=== PATIENT | male | born 1950 | race Two or more races ===

== ENCOUNTER → 2016-08-18 | Outpatient (CLI) | payer OTHER ==
[2016-08-18 12:00] LABS: Basophils # (auto) 0 uL; Basophils % (auto) 0.5 % (0.0-2.0); Eosinophils # (auto) 0.2 uL; Eosinophils % (auto) 2.9 % (0.0-7.0); Hematocrit 47.8 % (41.0-53.0); Hemoglobin 15.4 g/dL (13.5-17.5); Lymphocytes % (auto) 24.4 % (10.0-50.0); Mean Corpuscular Hemoglobin 27.9 pg (28.0-32.0); Mean Corpuscular Hgb Conc. 32.2 g/dL (32.0-36.0); Mean Corpuscular Volume 86.6 fL (80.0-100.0); Mean Platelet Volume 7.5 fL (7.4-10.4); Monocytes # (auto) 0.6 uL; Monocytes % (auto) 6.9 % (0.0-12.0); Neutrophils # (auto) 5.5 uL; Neutrophils % (auto) 65.3 % (37.0-80.0); Platelet Count (auto) 312 10^3/uL (140-450); Red Cell Distribution Width 13.6 % (11.6-16.0); White Blood Cell 8.4 10^3/uL (4.4-10.8)
[2016-08-18 12:25] LABS: Urine Bilirubin Negative (Negative); Urine Blood Negative /uL (Negative); Urine Color Yellow (Yellow); Urine Glucose Normal (Normal); Urine Ketone Negative (Negative); Urine Mucus FEW (None Seen); Urine Nitrite Negative (Negative); Urine RBC 1 /hpf (0 - 3); Urine Squamous Epithelial Cell FEW /hpf (<5); Urine Urobilinogen Normal (Negative); Urine pH 5.5 (5.0-8.0)
[2016-08-18 14:16] LABS: Albumin 3.8 g/dL (3.4-5.0); Potassium 4.4 mmol/L (3.5-5.1)
[2016-08-18 14:19] LABS: BUN/Creatinine Ratio 12.9; Calcium 8.9 mg/dL (8.5-10.1)
[2016-08-18 14:53] LABS: Bilirubin, Total 1.1 mg/dL (0.2-1.0); Total Protein 8.3 g/dL (6.4-8.2)
== END | disposition home or self-care (01) ==
LOC: LAB 11:08
PROVIDERS: ATTEND Internal Medicine
DX: L72.3 Sebaceous cyst (principal)
CPT/HCPCS: 36415; 80053; 80061; 81001; 84146; 84153; 84403; 84443; 85025; 85652; 86141

== ENCOUNTER → 2017-03-25 | Outpatient (CLI) | payer OTHER ==
[2017-03-25 15:43] LABS: Basophils # (auto) 0 uL; Basophils % (auto) 0.6 % (0.0-2.0); Eosinophils # (auto) 0.2 uL; Eosinophils % (auto) 2.1 % (0.0-7.0); Hemoglobin 14.2 g/dL (13.5-17.5); Lymphocytes # (auto) 1.9 uL; Lymphocytes % (auto) 24.8 % (10.0-50.0); Mean Corpuscular Hemoglobin 28.1 pg (28.0-32.0); Mean Corpuscular Hgb Conc. 33.7 g/dL (32.0-36.0); Mean Corpuscular Volume 83.4 fL (80.0-100.0); Mean Platelet Volume 6.9 fL (7.4-10.4); Monocytes # (auto) 0.6 uL; Monocytes % (auto) 8.2 % (0.0-12.0); Neutrophils % (auto) 64.3 % (37.0-80.0); Platelet Count (auto) 319 10^3/uL (140-450); Red Cell Distribution Width 14.7 % (11.6-16.0); White Blood Cell 7.9 10^3/uL (4.4-10.8)
[2017-03-25 16:02] LABS: Albumin 3.6 g/dL (3.4-5.0); BUN/Creatinine Ratio 17.7; Bilirubin, Total 1.3 mg/dL (0.2-1.0); Calcium 8.4 mg/dL (8.5-10.1); Total Protein 8.1 g/dL (6.4-8.2)
== END | disposition home or self-care (01) ==
LOC: LAB 15:02
PROVIDERS: ATTEND Internal Medicine
DX: E29.1 Testicular hypofunction (principal)
CPT/HCPCS: 36415; 80053; 84153; 85025

== ENCOUNTER → 2018-04-11 | Outpatient (CLI) | payer OTHER ==
[2018-04-11 12:42] LABS: Basophils # (auto) 0.1 uL; Basophils % (auto) 0.8 % (0.0-2.0); Eosinophils # (auto) 0.2 uL; Hematocrit 45.4 % (41.0-53.0); Hemoglobin 15.1 g/dL (13.5-17.5); Lymphocytes # (auto) 2.1 uL; Mean Corpuscular Hemoglobin 28.4 pg (28.0-32.0); Mean Corpuscular Hgb Conc. 33.2 g/dL (32.0-36.0); Mean Corpuscular Volume 85.3 fL (80.0-100.0); Monocytes # (auto) 0.6 uL; Neutrophils % (auto) 63.2 % (37.0-80.0); Nucleated Red Blood Cells % 0.1 %; Platelet Count (auto) 329 10^3/uL (140-450); Red Blood Cells 5.32 10^6/uL (4.5-5.90); Red Cell Distribution Width 13.7 % (11.8-14.3)
[2018-04-11 13:14] LABS: Free T4 (Free Thyroxine) 1.08 ng/dL (0.89-1.76)
[2018-04-11 13:15] LABS: Prostate Specific Antigen 0.46 ng/mL (0.0-4.0)
[2018-04-11 13:24] LABS: Albumin 3.6 g/dL (3.4-5.0); BUN/Creatinine Ratio 9.8; Bilirubin, Total 0.9 mg/dL (0.2-1.0); Calcium 8.7 mg/dL (8.5-10.1); Potassium 4.2 mmol/L (3.5-5.1); Total Protein 8.4 g/dL (6.4-8.2)
== END | disposition home or self-care (01) ==
LOC: LAB 12:11
PROVIDERS: ATTEND Internal Medicine
DX: L30.9 Dermatitis, unspecified (principal); R35.1 Nocturia
CPT/HCPCS: 36415; 80053; 80061; 84153; 84439; 84443; 85025; 85652

== ENCOUNTER → 2018-06-14 | Outpatient (CLI) | payer OTHER ==
[2018-06-14 14:11] LABS: Potassium 4.5 mmol/L (3.5-5.1)
[2018-06-14 14:17] LABS: BUN/Creatinine Ratio 16.9; Calcium 8.7 mg/dL (8.5-10.1)
== END | disposition home or self-care (01) ==
LOC: LAB 12:21
PROVIDERS: ATTEND Internal Medicine
DX: N17.9 Acute kidney failure, unspecified (principal)
CPT/HCPCS: 36415; 80048

== ENCOUNTER → 2019-11-30 | Outpatient (CLI) | payer OTHER ==
[2019-11-30 10:16] LABS: Urine Bacteria NONE SEEN /hpf (None Seen); Urine Blood Negative /uL (Negative); Urine Mucus FEW (None Seen); Urine Specific Gravity 1.022 (1.001-1.035); Urine WBC 1 /hpf (0 - 3)
[2019-11-30 10:41] LABS: Albumin 3.6 g/dL (3.4-5.0); Calcium 8.6 mg/dL (8.5-10.1); Potassium 4.2 mmol/L (3.5-5.1); Uric Acid 6.4 mg/dL (3.5-7.2)
[2019-11-30 10:45] LABS: BUN/Creatinine Ratio 16.1; Basophils # (auto) 0 10 ^3/uL (0-0.2); Basophils % (auto) 0.6 % (0.0-2.0); Bilirubin, Total 1.8 mg/dL (0.2-1.0); Eosinophils # (auto) 0.2 10 ^3/uL (0-0.8); Eosinophils % (auto) 3.2 % (0.0-7.0); Hematocrit 47.4 % (41.0-53.0); Hemoglobin 15.8 g/dL (13.5-17.5); Lymphocytes # (auto) 1.7 10 ^3/uL (0.4-5.4); Lymphocytes % (auto) 25.4 % (10.0-50.0); Mean Corpuscular Hemoglobin 29.8 pg (28.0-32.0); Mean Corpuscular Hgb Conc. 33.3 g/dL (32.0-36.0); Mean Corpuscular Volume 89.4 fL (80.0-100.0); Monocytes # (auto) 0.5 10 ^3/uL (0-1.3); Monocytes % (auto) 7.7 % (0.0-12.0); Neutrophils # (auto) 4.3 10 ^3/uL (1.6-8.6); Neutrophils % (auto) 63.1 % (37.0-80.0); Nucleated Red Blood Cells % 0.1 %; Platelet Count (auto) 310 10^3/uL (140-450); Red Blood Cells 5.31 10^6/uL (4.5-5.90); Red Cell Distribution Width 13.2 % (11.8-14.3); Total Protein 8.1 g/dL (6.4-8.2); White Blood Cell 6.9 10^3/uL (4.4-10.8)
[2019-11-30 10:55] LABS: Free T4 (Free Thyroxine) 1.18 ng/dL (0.89-1.76)
[2019-11-30 10:56] LABS: Prostate Specific Antigen 0.36 ng/mL (0.0-4.0)
== END | disposition home or self-care (01) ==
LOC: LAB 09:45
PROVIDERS: ATTEND Internal Medicine
DX: Z00.00 Encounter for general adult medical examination without abnormal findings (principal); N40.0 Benign prostatic hyperplasia without lower urinary tract symptoms; Z87.442 Personal history of urinary calculi
CPT/HCPCS: 36415; 80053; 80061; 81001; 83970; 84153; 84439; 84443; 84550; 85025; 85652

== ENCOUNTER → 2021-09-10 | Outpatient (CLI) | payer OTHER ==
[2021-09-10 10:27] LABS: Basophils # (auto) 0 10 ^3/uL (0-0.2); Basophils % (auto) 0.5 % (0.0-2.0); Eosinophils # (auto) 0.4 10 ^3/uL (0-0.8); Eosinophils % (auto) 4.8 % (0.0-7.0); Hematocrit 45.1 % (41.0-53.0); Hemoglobin 15.8 g/dL (13.5-17.5); Lymphocytes % (auto) 25.6 % (10.0-50.0); Mean Corpuscular Hemoglobin 30.6 pg (28.0-32.0); Mean Corpuscular Hgb Conc. 34.9 g/dL (32.0-36.0); Mean Corpuscular Volume 87.7 fL (80.0-100.0); Monocytes # (auto) 0.8 10 ^3/uL (0-1.3); Monocytes % (auto) 9.9 % (0.0-12.0); Neutrophils # (auto) 4.7 10 ^3/uL (1.6-8.6); Neutrophils % (auto) 59.2 % (37.0-80.0); Nucleated Red Blood Cells % 0.1 %; Red Blood Cells 5.14 10^6/uL (4.5-5.90); Red Cell Distribution Width 13.3 % (11.8-14.3)
[2021-09-10 11:31] LABS: Beta HCG, Quantitative < 1 mlU/mL (< 1); Lactate Dehydrogenase 193 U/L (87-241)
== END | disposition home or self-care (01) ==
LOC: LAB 07:55
PROVIDERS: ATTEND Internal Medicine
DX: L72.0 Epidermal cyst (principal); R73.01 Impaired fasting glucose; R21 Rash and other nonspecific skin eruption; M25.50 Pain in unspecified joint; N50.819 Testicular pain, unspecified
CPT/HCPCS: 36415; 82105; 83036; 83615; 84550; 84702; 85025; 85652; 86200; 86431

== ENCOUNTER 2022-05-23 12:01 | Emergency (ER) | payer OTHER ==
[~2022-05-23] VITALS: Ht 172.7 cm; Wt 90.0 kg
[2022-05-23 14:21] VITALS: BP 152/78
[2022-05-23] MEDS ORDERED: TETANUS-DIPTH-ACEL PERTUSSIS 0.5ML SYR Tdap IM ONE (14:45)
[2022-05-23] MEDS ORDERED: cefTRIAXone 1GM/50ML D5W 50 ML IV ONE (14:45)
[2022-05-23] MEDS ORDERED: IBUP800T27 PO (14:54)
[2022-05-23] MEDS ORDERED: CEPH-510 PO (14:54)
[2022-05-23] MEDS ORDERED: cefTRIAXone W LIDOCAINE 1 GM IM IM ONE (15:00)
== END 2022-05-23 15:32 | disposition home or self-care (01) ==
LOC: ER 12:01
DX: S62.664A Nondisplaced fracture of distal phalanx of right ring finger, initial encounter for closed fracture (principal); W22.8XXA Striking against or struck by other objects, initial encounter; Y93.89 Activity, other specified; Y92.89 Other specified places as the place of occurrence of the external cause; Y99.8 Other external cause status
CPT/HCPCS: 73140; 90471; 90715; 96372; 99284; J0696

== ENCOUNTER → 2022-05-28 | Outpatient (CLI) | payer OTHER ==
[~2022-05-28] MED LIST: CEPH-510 PO; IBUP800T27 PO
[2022-05-28 09:37] LABS: Basophils # (auto) 0 10 ^3/uL (0-0.2); Basophils % (auto) 0.7 % (0.0-2.0); Eosinophils # (auto) 0.3 10 ^3/uL (0-0.8); Hematocrit 44.9 % (41.0-53.0); Hemoglobin 15.4 g/dL (13.5-17.5); Lymphocytes # (auto) 1.9 10 ^3/uL (0.4-5.4); Lymphocytes % (auto) 28.3 % (10.0-50.0); Mean Corpuscular Hemoglobin 30.1 pg (28.0-32.0); Mean Corpuscular Hgb Conc. 34.3 g/dL (32.0-36.0); Mean Corpuscular Volume 87.7 fL (80.0-100.0); Monocytes # (auto) 0.5 10 ^3/uL (0-1.3); Monocytes % (auto) 7.9 % (0.0-12.0); Neutrophils % (auto) 59.1 % (37.0-80.0); Red Blood Cells 5.12 10^6/uL (4.5-5.90); Red Cell Distribution Width 12.9 % (11.8-14.3); White Blood Cell 6.7 10^3/uL (4.4-10.8)
[2022-05-28 10:13] LABS: Free T4 (Free Thyroxine) 1.12 ng/dL (0.89-1.76); Prostate Specific Antigen 0.45 ng/mL (0.0-4.0)
[2022-05-28 10:18] LABS: Urine Bacteria NONE SEEN /hpf (None Seen); Urine Blood Negative /uL (Negative); Urine Mucus FEW (None Seen); Urine Specific Gravity 1.029 (1.001-1.035); Urine WBC 2 /hpf (0 - 3)
[2022-05-28 10:21] LABS: Calcium 8.6 mg/dL (8.5-10.1); Potassium 3.8 mmol/L (3.5-5.1)
[2022-05-28 10:35] LABS: Albumin 3.4 g/dL (3.4-5.0); BUN/Creatinine Ratio 17.1; Total Protein 7.3 g/dL (6.4-8.2)
== END | disposition home or self-care (01) ==
LOC: LAB 09:04
PROVIDERS: ATTEND Internal Medicine
DX: S61.219A Laceration without foreign body of unspecified finger without damage to nail, initial encounter (principal); I10 Essential (primary) hypertension; X58.XXXA Exposure to other specified factors, initial encounter
CPT/HCPCS: 36415; 80053; 80061; 81001; 84153; 84439; 84443; 85025; 85652

== ENCOUNTER → 2022-06-04 | Outpatient (CLI) | payer OTHER | END | disposition home or self-care (01) | LOC: LAB 13:25 | PROVIDERS: ATTEND Internal Medicine | DX: Z12.11 Encounter for screening for malignant neoplasm of colon (principal) | CPT/HCPCS: 82270 ==

== ENCOUNTER → 2023-11-09 | Outpatient (CLI) | payer OTHER ==
[~2023-11-09] MED LIST changes: +IBUP-1456 PO; -IBUP800T27 PO
[2023-11-09 08:11] LABS: Basophils # (auto) 0.1 10 ^3/uL (0-0.2); Basophils % (auto) 0.6 % (0.0-2.0); Eosinophils # (auto) 0.3 10 ^3/uL (0-0.8); Eosinophils % (auto) 2.6 % (0.0-7.0); Hematocrit 44.5 % (41.0-53.0); Hemoglobin 15.3 g/dL (13.5-17.5); Lymphocytes # (auto) 2.6 10 ^3/uL (0.4-5.4); Lymphocytes % (auto) 24.7 % (10.0-50.0); Mean Corpuscular Hemoglobin 30.3 pg (28.0-32.0); Mean Corpuscular Hgb Conc. 34.4 g/dL (32.0-36.0); Mean Corpuscular Volume 88.1 fL (80.0-100.0); Monocytes # (auto) 0.9 10 ^3/uL (0-1.3); Monocytes % (auto) 8.4 % (0.0-12.0); Neutrophils # (auto) 6.6 10 ^3/uL (1.6-8.6); Neutrophils % (auto) 63.7 % (37.0-80.0); Nucleated Red Blood Cells % 0.1 %; Red Blood Cells 5.04 10^6/uL (4.5-5.90); Red Cell Distribution Width 12.9 % (11.8-14.3); White Blood Cell 10.4 10^3/uL (4.4-10.8)
[2023-11-09 08:23] LABS: Urine Bacteria FEW /hpf (None Seen); Urine Blood Negative /uL (Negative); Urine Budding Yeast OCCASIONAL /hpf (None Seen); Urine Clarity Clear (Clear); Urine Color Yellow (Yellow); Urine Mucus FEW (None Seen); Urine Protein, UAD TRACE (Negative); Urine Specific Gravity 1.025 (1.001-1.035); Urine Urobilinogen Normal (Negative); Urine WBC 1 /hpf (0 - 3); Urine pH 5.5 (5.0-9.0)
[2023-11-09 08:48] LABS: Erythrocyte Sedimentation Rate 31 mm/hr (0-20)
[2023-11-09 08:50] LABS: Alanine Aminotransferase 27 U/L (7-40); Albumin 4.4 g/dL (3.2-4.8); Alkaline Phosphatase 108 U/L (46-116); Anion Gap 8 (5-15); Aspartate Aminotransferase 25 U/L (13-40); BUN/Creatinine Ratio 13.2 (10.0-20.0); Blood Urea Nitrogen 15 mg/dL (9-23); Calcium 9.1 mg/dL (8.5-10.1); Carbon Dioxide 24 mmol/L (20-30); Chloride 108 mmol/L (98-107); Cholesterol 186 mg/dL (< 200); Glucose 111 mg/dL (74-106); LDL Cholesterol 137 mg/dL (< 100); Potassium 4.1 mmol/L (3.5-5.1); Prostate Specific Antigen 0.33 ng/mL (0.0-4.0); Sodium 140 mmol/L (136-145); Triglycerides 103 mg/dL (< 150)
[2023-11-09 08:51] LABS: Bilirubin, Total 2.5 mg/dL (0.2-1.0); HDL Cholesterol 38 mg/dL (40-59); Total Protein 7.6 g/dL (5.7-8.2)
[2023-11-09 08:55] LABS: Free T4 (Free Thyroxine) 1.23 ng/dL (0.89-1.76)
== END | disposition home or self-care (01) ==
LOC: LAB 07:51
PROVIDERS: ATTEND Internal Medicine
DX: I10 Essential (primary) hypertension (principal)
CPT/HCPCS: 36415; 80053; 80061; 81001; 84153; 84439; 84443; 85025; 85652

== ENCOUNTER → 2024-05-02 | Outpatient (CLI) | payer OTHER ==
[~2024-05-02] MED LIST changes: +ASPI-325 PO; +ATOR80TA PO; +CLOP75TA28 PO
--- NOTE | 2024-05-02 09:57 | DVHSR ---
APPROVED REPORT EXAM: Two-dimensional and M-mode echocardiogram with Doppler and color Doppler. INDICATION Dyspnea DIMENSIONS LVDd (3.8-5.7cm)LA (2D)3.5 (1.9-4.0cm)Aortic Root3.1 (2.0-3.7cm) LVDs (2.5-4.0cm)LA (MM) (1.9-4.0cm)Aortic Cusp Exc1.7 (1.5-2.0cm) EF (%) 59.0 (55-70%)Rt. Atrium (1.9-4.0cm)Asc. Aorta cm Mitral Valve MitralMitral Stenosis E wave0.83m/sMV Mean GR.1mmHg A wave0.84m/sMV Peak GR.48mmHg E/A ratio1.02D MVAcm2 DECEL [id number] 1/2 [id number] IVRTmsDop MVA2.75cm2 Aortic Valve Aortic ValveAortic Stenosis V11.00m/Latasha Mean GR.3mmHg V21.14m/Latasha Peak GR.5mmHg LVOT Diameter1.9 (1.8-2.4cm)Doppler AVA2.49cm2 Pulmonic Valve V20.95m/s Tricuspid Valve TR Velocity2.87m/s [id number] Other Information Quality : Technically LimitedRhythm : Technically limited study due to body habitus. Conclusion Normal left ventricular size and dimension. Normal right ventricular systolic function estimated eje ction fraction 55%. There is a grade 1 diastolic dysfunction. Normal right ventricular size and dimension. Drea right ventricular systolic function. Slightly in creased right ventricular systolic [id number] mm of mercury. Normal biatrial size and dimension. Normal aortic valve structure and function. Normal mitral valve structure and function. Normal tricuspid valve structure and function. Pulmonary valve is grossly normal. No pericardial effusion.
== END | disposition home or self-care (01) ==
LOC: XYW 08:15
PROVIDERS: ATTEND Student in an Organized Health Care Education/Training Program
DX: I51.89 Other ill-defined heart diseases (principal); R06.02 Shortness of breath
CPT/HCPCS: 93306

== ENCOUNTER → 2024-05-25 | Outpatient (CLI) | payer OTHER ==
[~2024-05-25] MED LIST changes: -ASPI-325 PO; -ATOR80TA PO; -CLOP75TA28 PO
[2024-05-25 09:09] VITALS: BP 165/89; PULSE 56; RESP 17
== END | disposition home or self-care (01) ==
LOC: XYW 08:25
PROVIDERS: ATTEND Student in an Organized Health Care Education/Training Program
DX: Z01.810 Encounter for preprocedural cardiovascular examination (principal)
CPT/HCPCS: 93017

== ENCOUNTER 2024-06-21 08:19 | Inpatient (IN) | payer OTHER ==
[2024-06-20 10:41] LABS: Basophils # (auto) 0 10 ^3/uL (0-0.2); Basophils % (auto) 0.5 % (0.0-2.0); Eosinophils # (auto) 0.4 10 ^3/uL (0-0.8); Eosinophils % (auto) 3.8 % (0.0-7.0); Hematocrit 45.3 % (41.0-53.0); Hemoglobin 15.4 g/dL (13.5-17.5); Lymphocytes # (auto) 2.7 10 ^3/uL (0.4-5.4); Lymphocytes % (auto) 29.4 % (10.0-50.0); Mean Corpuscular Hemoglobin 30.3 pg (28.0-32.0); Mean Corpuscular Volume 89.2 fL (80.0-100.0); Monocytes # (auto) 0.7 10 ^3/uL (0-1.3); Monocytes % (auto) 7.9 % (0.0-12.0); Neutrophils # (auto) 5.4 10 ^3/uL (1.6-8.6); Neutrophils % (auto) 58.4 % (37.0-80.0); Nucleated Red Blood Cells % 0.1 %; Platelet Count (auto) 290 10^3/uL (140-450); Red Blood Cells 5.08 10^6/uL (4.5-5.90); Red Cell Distribution Width 13.1 % (11.8-14.3); White Blood Cell 9.3 10^3/uL (4.4-10.8)
[2024-06-20 10:57] LABS: INR 1.02 (0.9-1.15); Partial Thromboplastin Time 29.1 SEC (24.5-34.5); Prothrombin Time 10.8 sec (9.3-11.8)
[2024-06-20 11:00] LABS: Urine Bacteria FEW /hpf (None Seen); Urine Blood Negative /uL (Negative); Urine Clarity Clear (Clear); Urine Color Yellow (Yellow); Urine Mucus FEW (None Seen); Urine Protein, UAD 1+ (Negative); Urine Specific Gravity 1.033 (1.001-1.035); Urine Urobilinogen Normal (Negative); Urine WBC 2 /hpf (0 - 3); Urine pH 5.5 (5.0-9.0)
[2024-06-20 11:25] LABS: Alanine Aminotransferase 31 U/L (7-40); Albumin 4.2 g/dL (3.2-4.8); Alkaline Phosphatase 95 U/L (46-116); Anion Gap 8 (5-15); Aspartate Aminotransferase 26 U/L (13-40); BUN/Creatinine Ratio 17.7 (10.0-20.0); Blood Urea Nitrogen 22 mg/dL (9-23); Calcium 9.6 mg/dL (8.7-10.4); Carbon Dioxide 24 mmol/L (20-31); Potassium 4.3 mmol/L (3.5-5.1); Sodium 140 mmol/L (136-145); Total Protein 7.3 g/dL (5.7-8.2)
[2024-06-20 11:33] LABS: Bilirubin, Total 1.8 mg/dL (0.2-1.0); Chloride 108 mmol/L (98-107); Glucose 107 mg/dL (74-106)
[~2024-06-21] VITALS: Ht 175.3 cm; Wt 107.0 kg
[2024-06-21] MEDS: ceFAZolin 2 GM/D5W100ml 100 ML IV ONE (09:14)
[2024-06-21] MEDS: BACITRACIN TOP OINT 1 UD PKG TOP ONE (10:52)
[2024-06-21] MEDS: LIDOCAINE W/ EPINEPHRINE 1% 20ML VIAL ONE ×2 (10:52→17:35)
[2024-06-21] MEDS: LIDOCAINE 1% HCL (LOCAL ANESTH.) INJ 20ML MDV ONE (10:53)
[2024-06-21] MEDS: BUPIVACAINE HCL 0 ML ONE (10:53)
[2024-06-21] MEDS ORDERED: MEPERIDINE HCL (25 MG/ML) 1ML VIAL ONE (11:22)
[2024-06-21] MEDS ORDERED: MIDAZOLAM HCL 2MG/2ML 2ml VIAL (1mg/ml) ONE (11:22)
[2024-06-21] MEDS ORDERED: fentaNYL CITRATE 100 MCG/2 ML VL ONE (11:22)
[2024-06-21] MEDS ORDERED: MIDAZOLAM HCL 2MG/2ML 2ml VIAL (1mg/ml) IV PRN (12:15)
[2024-06-21] MEDS ORDERED: ePHEDrine SULFATE 50 MG/ML AMP IV PRN (12:15)
[2024-06-21] MEDS ORDERED: MORPHINE SULFATE 4 MG/ML SYR/VIAL IV PRN (12:15)
[2024-06-21] MEDS ORDERED: PROPOFOL 10 MG/ML 20 ML IV ONE (12:25)
[2024-06-21] MEDS ORDERED: DexAMETHasone SOD PHOS 10MG/1ML VIAL INJ ONE (12:25)
[2024-06-21] MEDS ORDERED: ONDANSETRON HCL 4 MG/2 ML VIAL ONE (12:27)
--- NOTE | 2024-06-21 12:54 | DVHDS2 ---
New Physician D'charge PN Admitting Diagnosis Admitting Diagnosis Left epididymal cyst Left hydrocele Left scrotal pain Discharge Diagnosis Same Operations or Procedures Left hydrocelectomy and epididymal cystectomy Reason(s) For Hospitalization Surgery Treatment Plan Discharge Condition of Discharge Fair Disposition Home Discharge Instructions Diet: Regular Activity: Light activity Activity comment: Scrotal support and minimal activity x4 weeks Medications: Given Follow Up Care Follow Up/Referral: Follow-up for drain removal on Tuesday06/25/24 Discharge Statement: "Patient was advised to return to the ER or call 911 if any headaches, dizziness, shortness of breath, chest pain, abdominal pain, bleeding, fevers, or worsening of medical condition. Patient was counseled about treatment plan, medications, possible side effects, patientverbalized understanding. All questions were answered to the best of my ability. This discharge took greater then 30 minutes in planning, reviewing documentation, counseling the patient, and discussing with other team members." ONEIDA BHATIA MD Jun 21, 2024 12:54
[2024-06-21] MEDS: HYDROmorphone HCL 2 MG/ML VL/or syr IV PRN (13:15)
[2024-06-21] MEDS: ONDANSETRON HCL 4 MG/2 ML VIAL IV ONE (14:31)
[2024-06-21] MEDS: ONDANSETRON HCL 4 MG/2 ML VIAL IM ONE (15:18)
--- NOTE | 2024-06-21 16:10 | DVH ---
EXAM: CT HEAD WITHOUT CONTRAST HISTORY: SLURRED SPEECH; ARM DROOP S/P SURGERY COMPARISON: None TECHNIQUE: Axial images of the head were obtained and reformatted in coronal and sagittal planes. All CT scans at this medical facility are performed using dose modulation techniques as appropriate t o a performed exam including the following: Automated exposure control was utilized; adjustment of th e MA and/or KV according to patient size; and use of iterative reconstruction technique. CT Dose: CTDI volume is 57.08 mGy. Dose-length product is 1029.16 mGy*cm FINDINGS: There is no evidence of acute intracranial hemorrhage, mass, mass effect midline shift. There is no h ydrocephalus or extra-axial fluid collection. There are mild patchy hypodense areas in the supratento rial white matter compatible with chronic microvascular ischemic changes. Schmitt-white matter different iation is maintained.. The visualized paranasal sinuses and mastoid air cells are clear. The calvarium is intact. IMPRESSION: 1. No acute intracranial process. HS:Y
[2024-06-21] MEDS: hydrALAZINE HCL 20 MG/ML VL IV PRN (16:20)
[2024-06-21] MEDS: ASPirin 81 mg TAB PO ONE (16:45)
[2024-06-21] MEDS ORDERED: MORPHINE SULFATE INJ 2 MG/ml SYRG IV PRN (16:45)
[2024-06-21] MEDS: LORazepam 2MG/ML-1ML VIAL IV ONE (16:45)
[2024-06-21] MEDS ORDERED: NITROGLYCERIN 0.4 MG SL TAB SL PRN (16:45)
[2024-06-21] MEDS ORDERED: ONDANSETRON HCL 4 MG/2 ML VIAL IV PRN (16:45)
--- NOTE | 2024-06-21 16:45 | DVHHP2 ---
Review of Systems Allergies: Coded Allergies: NO KNOWN ALLERGIES (Unverified , 06/20/24) Medications Current Medications Medications Dose Ordered Sig/Prabha Route Start Time Stop Time Status Last Admin Dose Admin Nitroglycerin 0.4 mg Q5MINP PRN SL 06/21/24 16:45 UNV Morphine Sulfate 2 mg Q30M PRN IV 06/21/24 16:45 UNV Acetaminophen 500 mg Q6HP PRN PO 06/21/24 16:45 UNV Acetaminophen/ Hydrocodone Bitart 1 tab Q6HPRN PRN PO 06/21/24 16:45 UNV Ondansetron HCl 4 mg Q6HPRN PRN IV 06/21/24 16:45 UNV Aspirin 81 mg DAILY PO 06/22/24 10:00 UNV Atorvastatin Calcium 20 mg HS PO 06/21/24 22:00 UNV Exam Vital Signs Vital Signs Date Time Temp Pulse Resp B/P (MAP) Pulse Ox O2 Delivery O2 Flow Rate FiO2 06/21/24 12:48 Mask 06/21/24 12:48 6.0 92 06/21/24 08:30 97.1 64 20 139/75 (96) 95 97.1 Labs/Xrays Labs Test 06/21/24 15:38 06/20/24 10:28 Range/Units POC Glucose 147 H 70-106 mg/dl White Blood Count 9.3 4.4-10.8 10^3/uL Red Blood Count 5.08 4.5-5.90 10^6/uL Hemoglobin 15.4 13.5-17.5 g/dL Hematocrit 45.3 41.0-53.0 % Mean Corpuscular Volume 89.2 80.0-100.0 fL Mean Corpuscular Hemoglobin 30.3 28.0-32.0 pg Mean Corpuscular Hemoglobin Concent 34.0 32.0-36.0 g/dL Red Cell Distribution Width 13.1 11.8-14.3 % Platelet Count 290 140-450 10^3/uL Mean Platelet Volume 6.9 6.9-10.8 fL Neutrophils (%) (Auto) 58.4 37.0-80.0 % Lymphocytes (%) (Auto) 29.4 10.0-50.0 % Monocytes (%) (Auto) 7.9 0.0-12.0 % Eosinophils (%) (Auto) 3.8 0.0-7.0 % Basophils (%) (Auto) 0.5 0.0-2.0 % Neutrophils # (Auto) 5.4 1.6-8.6 10 ^3/uL Lymphocytes # (Auto) 2.7 0.4-5.4 10 ^3/uL Monocytes # (Auto) 0.7 0-1.3 10 ^3/uL Eosinophils # (Auto) 0.4 0-0.8 10 ^3/uL Basophils # (Auto) 0 0-0.2 10 ^3/uL Nucleated Red Blood Cells 0.1 % Prothrombin Time 10.8 9.3-11.8 sec Prothrombin Time INR 1.02 0.9-1.15 Activated Partial Thromboplast Time 29.1 24.5-34.5 SEC Urine Color Yellow Yellow Urine Clarity Clear Clear Urine pH 5.5 5.0-9.0 Urine Specific [place] 1.033 1.001-1.035 Urine Protein 1+ H Negative Urine Ketones Negative Negative Urine Blood Negative Negative /uL Urine Nitrite Negative Negative Urine Bilirubin Negative Negative Urine Urobilinogen Normal Negative mg/dL Urine Leukocyte Esterase Negative Negative /uL Urine RBC None seen 0 - 3 /hpf Urine WBC 2 0 - 3 /hpf Urine Squamous Epithelial Cells None seen <5 /hpf Urine Bacteria Few H None Seen /hpf Urine Mucus Few None Seen Urine Glucose Normal Normal mg/dL Sodium Level 140 136-145 mmol/L Potassium Level 4.3 3.5-5.1 mmol/L Chloride Level 108 H 98-107 mmol/L Carbon Dioxide Level 24 20-31 mmol/L Anion Gap 8 5-15 Blood Urea Nitrogen 22 9-23 mg/dL Creatinine 1.24 0.700-1.30 mg/dL Glomerular Filtration Rate Calc 62 >90 mL/min BUN/Creatinine Ratio 17.7 10.0-20.0 Serum Glucose 107 H 74-106 mg/dL Calcium Level 9.6 8.7-10.4 mg/dL Total Bilirubin 1.8 H 0.2-1.0 mg/dL Aspartate Amino Transferase (AST) 26 13-40 U/L Alanine Aminotransferase (ALT) 31 7-40 U/L Alkaline Phosphatase 95 46-116 U/L Total Protein 7.3 5.7-8.2 g/dL Albumin 4.2 3.2-4.8 g/dL Microbiology Date/Time Source Procedure Growth Status 06/20/24 10:28 Voided Urine Urine Culture - Preliminary Resulted Assessment/Plan Assessment/Plan SEE DICTATED NOTE Plan discussed with: Patient My Orders Orders - SANDRA HENSON MD Procedure Category Date Status Time Admit ADMIT 06/21/24 Transmitted 16:35 Nitroglycerin PHA 06/21/24 Logged Sublingual (Ntrostat 16:45 Morphine Sulfate PHA 06/21/24 Logged Injection 16:45 Stat Ekg For Chest MARQUEZ 06/21/24 In Process Pain 16:35 Notify Md Of Changes MARQUEZ 06/21/24 In Process From Base 16:35 Life Insurance Actuary For [facility] 06/21/24 In Process 24 Hours 16:35 Emergency Dysrhythmia [facility] 06/21/24 In Process Protocol 16:35 Rhythm Strips Once [facility] 06/21/24 In Process Every Shift 16:35 Oxygen By Nasal RT 06/21/24 Transmitted Cannula 16:35 Regular Diet DIET 06/21/24 Transmitted Dinner Acetaminophen Tablet PHA 06/21/24 Logged (Tylenol Tablet) 16:45 Hydrocodone-Acet PHA 06/21/24 Logged 5/325mg Tab ([place] 16:45 Ondansetron Hcl PHA 06/21/24 Logged (Zofran) 16:45 Aspirin Tablet PHA 06/21/24 Logged 16:45 Aspirin Tablet PHA 06/22/24 Logged 10:00 Atorvastatin (Lipitor) PHA 06/21/24 Logged 22:00 * Neurology Consult CONS 06/21/24 Transmitted 16:35 Hydralazine Injection PHA 06/21/24 Transmitted (Apresoline Inject 18:00 Complete Blood Count LAB 06/22/24 Verified 06:00 Comprehensive LAB 06/22/24 Verified Metabolic Panel 06:00 Lipid Panel LAB 06/22/24 Verified 06:00 Carotid Duplx W Color US 06/21/24 Transmitted DOP 16:37 Pt Request For Service PT 06/21/24 Transmitted 16:37 Brain Head Wo Contrast MRI 06/21/24 Transmitted 16:37 Echo 2d Mode Cardiac US 06/21/24 Transmitted DOP 16:37 Date of Service: Jun 21, 2024 Billing Provider: SANDRA HENSON MD Common Visit Codes: 06821-[id number] INP/OBS CARE (HIGH) Secondary Visit Codes: 26551-[id number] CARE PLAN 30 MINUTES SANDRA HENSON MD Jun 21, 2024 16:45
--- NOTE | 2024-06-21 17:02 | DVHHP ---
ADMIT DATE: 06/21/2024 HISTORY OF PRESENT ILLNESS: The patient is a 73-year-old gentleman who underwent surgery on the left epididymal cyst by Dr. Rodríguez. The patient was being wheeled out, suddenly developed weakness of the right upper extremity along with dysarthria and some numbness of the right side. The patient subsequently recovered the weakness. At this time, he denies any headache. No chest pain, no nausea or vomiting. No other deficits at this time. REVIEW OF SYSTEMS: Review of rest of systems are otherwise currently negative. PAST MEDICAL HISTORY: No significant illness in the past, although the patient does not see a doctor on regular basis. ALLERGIES: No known drug allergies. SOCIAL HISTORY: Denies smoking or alcohol. Lives alone. FAMILY HISTORY: Negative. PHYSICAL EXAMINATION: GENERAL: The patient is awake and alert. VITAL SIGNS: Temperature of 97.1, pulse 64 per minute and blood pressure 129/75. SHEENT: Unremarkable. NECK: There is no JVD, no pedal edema. LUNGS: Equal bilaterally. No added sounds. CARDIOVASCULAR: S1, S2 is regular, no murmurs. ABDOMEN: Soft. There is no organomegaly. NEUROLOGICAL: The patient at this time appears nonfocal. ASSESSMENT AND PLAN: 1. Questionable transient ischemic attack, questionable cerebrovascular accident. The patient will have a Neurology eval done as well as MRI of the brain. He will be placed on aspirin and Lipitor. 2. Status post surgery for left epididymal cyst. 3. Obesity. 4. Questionable hypertension. 5. Advance care planning, the patient is a FULL CODE. Time spent was 19 minutes. MD DANA Perry/EN TID: [id number] RECEIPT: [id number]
--- NOTE | 2024-06-21 17:43 | DVH ---
EXAMINATION: MRI BRAIN HEAD WO CONTRAST INDICATION: TIA COMPARISON: CT HEAD WITHOUT CONTRAST on DOS: 06/21/24 TECHNIQUE: Multiplanar, multisequence magnetic resonance imaging of the brain was performed without the use of i ntravenous contrast. FINDINGS: There are small scattered patchy foci of restricted diffusion in the left superior and lateral fronta l lobes consistent with acute to subacute infarcts. There is no evidence of acute intracranial hemorr smai. There is no significant surrounding edema. There is no mass effect or midline shift. There are patchy and confluent hyperintense T2 signal changes in the supratentorial white matter comp atible with moderate chronic microvascular ischemic changes. There is no hydrocephalus or extra-axia l fluid collection. The visualized intracranial vasculature demonstrates appropriate flow-voids. The sagittal midline structures appear unremarkable. The craniocervical junction is within normal limits. The calvarium demonstrates normal marrow signal. The paranasal sinuses and mastoid air cells are mk ar. IMPRESSION: 1. Small scattered patchy foci of restricted diffusion in the left superior and lateral frontal lobes consistent with acute to subacute infarcts. There is no evidence of acute intracranial hemorrhage. There is no significant surrounding edema or mass effect. 2. Moderate chronic microvascular supratentorial white matter ischemic changes. HS:Y
[2024-06-21] MEDS: hydrALAZINE HCL 20 MG/ML VL IV SCH (18:05)
[2024-06-21 18:50] VITALS: BP 153/82; PULSE 97; RESP 18; TEMP 97.6; O2SAT 95
[2024-06-21 20:00] VITALS: PULSE 98
[2024-06-21 21:00] VITALS: BP 128/70; PULSE 98; RESP 16; TEMP 97.6; O2SAT 96
--- NOTE | 2024-06-21 21:42 | DVHINCON2 ---
Date of service: Jun 21, [address] Chávez Reason for Consultation ? TIA History of Present Illness Mr. Campos is a 73 years old right-handed gentleman with a history of obesity, but otherwise healthy, he was admitted to the [facility] on 06/21/2024 with a chief company acute stroke syndrome. At that time, he is alert and fully oriented, he provided the following history. The case has been discussed with . I have also discussed with his He had scheduled left epididymal sister removal by Dr. Rodríguez on 06/21/2024, he remember that he was in a wheelchair, about to sign release paperwork, but the next memory was waking up still in the same wheelchair, and nursing was asking him questions, and asked him to exercise. He does not remember having troubles, but he was said to have difficult to speak, weakness right arm. The patient was never had similar problem before, he was no history of stroke, seizure, he had a quick recovery. According to his , the patient was snores only when his sleep on his back. does not seem signs of apnea when he was asleep Urinalysis, 06/20/2024: Unremarkable CBC, 06/20/2024: Unremarkable BMP, 06/20/2024: Unremarkable TBI/AST/ALT/AP, 06/20/2024: 1.8/26/31/95 HGB A1c, 02/2023: 5.35 TG/HDL/LDL/HDL, 10/2023: 103/186/137/38 TSH, 10/2019 4:1.7 Echocardiogram, 05/02/2024: Normal left ventricular size and dimension. Normal right ventricular systolic function estimated ejection fraction 55%. There is a grade 1 diastolic dysfunction. Normal right ventricular size and dimension. Drea right ventricular systolic function. Slightly increased right ventricular systolic [id number] mm of mercury. Normal biatrial size and dimension. Normal aortic valve structure and function. Normal mitral valve structure and function. Normal tricuspid valve structure and function. Pulmonary valve is grossly normal. No pericardial effusion CT head, 06/21/2024: No acute intracranial process MRI head, 06/21/2024: 1. Small scattered patchy foci of restricted diffusion in the left superior and lateral frontal lobes consistent with acute to subacute infarcts. There is no evidence of acute intracranial hemorrhage. There is no significant surrounding edema or mass effect. 2. Moderate chronic microvascular supratentorial white matter ischemic changes Past Medical History Obesity Past Surgical History Left hand fracture repair, right foot bunion removal, left epididymal cyst removal Family History: Patient reports no known family medical history. Family History Dementia Social History He was tobacco smoker, no history of alcohol or recreational substance abuse Allergies: Coded Allergies: NO KNOWN ALLERGIES (Unverified , 06/20/24) Home Meds No Active Prescriptions or Reported Meds Current Medications Current Medications Medications (Trade) Dose Ordered Sig/Prabha Route PRN Reason Start Time Stop Time Status Last Admin Hydralazine HCl (Apresoline Injection) 5 mg Q10M PRN IV SBP>160 06/21/24 12:15 06/21/24 13:06 DC 06/21/24 16:20 Morphine Sulfate 2 mg Q2HPRN PRN IV BREAKTHROUGH PAIN (7-10) 06/21/24 12:15 06/21/24 12:21 DC Midazolam HCl (Versed Injection) 1 mg Q10M PRN IV ANXIETY 06/21/24 12:15 06/21/24 12:56 DC Ephedrine Sulfate (ePHEDrine SULFATE) 10 mg Q10M PRN IV SBP LESS THAN 90 06/21/24 12:15 06/21/24 12:56 DC Hydromorphone HCl (Dilaudid Injection) 0.5 mg Q10M PRN IV SEVERE PAIN (7-10 PAIN SCALE) 06/21/24 12:15 06/21/24 12:56 DC 06/21/24 13:44 Nitroglycerin (Ntrostat Sublingual) 0.4 mg Q5MINP PRN SL FOR CHEST PAIN 06/21/24 16:45 Morphine Sulfate 2 mg Q30M PRN IV FOR CHEST PAIN 06/21/24 16:45 Acetaminophen (Tylenol Tablet) 500 mg Q6HP PRN PO MILD PAIN (1-3 PAIN SCALE) 06/21/24 16:45 Acetaminophen/ Hydrocodone Bitart ([place] 5/325MG Tab) 1 tab Q6HPRN PRN PO MODERATE PAIN (4-6 PAIN SCALE) 06/21/24 16:45 Ondansetron HCl (Zofran) 4 mg Q6HPRN PRN IV NAUSEA / VOMITING 06/21/24 16:45 Aspirin 81 mg DAILY PO 06/22/24 10:00 Atorvastatin Calcium (Lipitor) 20 mg HS PO 06/21/24 22:00 Hydralazine HCl (Apresoline Injection) 10 mg Q6HR IV 06/21/24 18:00 06/21/24 18:05 Review of Systems As above, the other systems are negative Vital Signs Vital Signs Date Time Temp Pulse Resp B/P (MAP) Pulse Ox O2 Delivery O2 Flow Rate FiO2 06/21/24 19:06 Room Air* 0 21 06/21/24 18:27 90 16 158/74 (102) 98 06/21/24 12:51 97.0 97.0 Physical Exam GENERAL EXAM: General: the patient is well developed and nourished. No acute distress. HEENT: Normocephalic, neck is supple, no carotid bruits. No mass RESPIRATORY: Normal respiratory effort with symmetrical lung expansion. Lungs clear to auscultation. CARDIOVASCULAR: Regular rate and rhythm with no murmurs. S1, S2. ABDOMEN: Soft, nontender, normal bowel sound NEUROLOGICAL: MENTAL STATUS: Awake and alert. Oriented to person, place, time and general circumstances. Able to give personal history. SPEECH, LANGUAGE, HIGHER CORTICAL FUNCTION: no aphasia or dysathria. CRANIAL NERVES: #2: Intact visual beltran to confrontation. The optic discs were sharp.. #3,4,6: Pupils are equal, round and reactive. EOMs full and conjugate. No nystagmus. #5: Facial sensation intact in all three divisions bilaterally. Mandibular strength intact. #7: Facial muscles symmetrical and strength intact. #8: Hearing grossly normal to voice. #9,10: Uvula and soft palate rise in the midline. Swallow and voice are normal. #11: Trapezius and sternomastoid strength intact bilaterally. #12: Tongue midline. No fasciculations or atrophy. SENSATION: Sensation to touch and pinprick is normal. MOTOR: Normal tone in the upper and lower extremity. Normal muscle bulk. No fasciculations. No abnormal movements or posturing. Muscle strength of the major groups in the extremities is 5/5 except for subtle weakness in the right upper extremity REFLEXES: Deep tendon reflexes normal and symmetrical. No pathological reflexes. CEREBELLAR/COORDINATION: Finger to nose and heel to holloway are normal bilaterally. GAIT/STATION: deferred. Labs/Diagnostic Data Labs Test 06/21/24 20:24 06/21/24 15:38 06/20/24 10:28 Range/Units POC Glucose 147 H 70-106 mg/dl White Blood Count 9.3 4.4-10.8 10^3/uL Red Blood Count 5.08 4.5-5.90 10^6/uL Hemoglobin 15.4 13.5-17.5 g/dL Hematocrit 45.3 41.0-53.0 % Mean Corpuscular Volume 89.2 80.0-100.0 fL Mean Corpuscular Hemoglobin 30.3 28.0-32.0 pg Mean Corpuscular Hemoglobin Concent 34.0 32.0-36.0 g/dL Red Cell Distribution Width 13.1 11.8-14.3 % Platelet Count 290 140-450 10^3/uL Mean Platelet Volume 6.9 6.9-10.8 fL Neutrophils (%) (Auto) 58.4 37.0-80.0 % Lymphocytes (%) (Auto) 29.4 10.0-50.0 % Monocytes (%) (Auto) 7.9 0.0-12.0 % Eosinophils (%) (Auto) 3.8 0.0-7.0 % Basophils (%) (Auto) 0.5 0.0-2.0 % Neutrophils # (Auto) 5.4 1.6-8.6 10 ^3/uL Lymphocytes # (Auto) 2.7 0.4-5.4 10 ^3/uL Monocytes # (Auto) 0.7 0-1.3 10 ^3/uL Eosinophils # (Auto) 0.4 0-0.8 10 ^3/uL Basophils # (Auto) 0 0-0.2 10 ^3/uL Nucleated Red Blood Cells 0.1 % Prothrombin Time 10.8 9.3-11.8 sec Prothrombin Time INR 1.02 0.9-1.15 Activated Partial Thromboplast Time 29.1 24.5-34.5 SEC Urine Color Yellow Yellow Urine Clarity Clear Clear Urine pH 5.5 5.0-9.0 Urine Specific [place] 1.033 1.001-1.035 Urine Protein 1+ H Negative Urine Ketones Negative Negative Urine Blood Negative Negative /uL Urine Nitrite Negative Negative Urine Bilirubin Negative Negative Urine Urobilinogen Normal Negative mg/dL Urine Leukocyte Esterase Negative Negative /uL Urine RBC None seen 0 - 3 /hpf Urine WBC 2 0 - 3 /hpf Urine Squamous Epithelial Cells None seen <5 /hpf Urine Bacteria Few H None Seen /hpf Urine Mucus Few None Seen Urine Glucose Normal Normal mg/dL Sodium Level 140 136-145 mmol/L Potassium Level 4.3 3.5-5.1 mmol/L Chloride Level 108 H 98-107 mmol/L Carbon Dioxide Level 24 20-31 mmol/L Anion Gap 8 5-15 Blood Urea Nitrogen 22 9-23 mg/dL Creatinine 1.24 0.700-1.30 mg/dL Glomerular Filtration Rate Calc 62 >90 mL/min BUN/Creatinine Ratio 17.7 10.0-20.0 Serum Glucose 107 H 74-106 mg/dL Calcium Level 9.6 8.7-10.4 mg/dL Total Bilirubin 1.8 H 0.2-1.0 mg/dL Aspartate Amino Transferase (AST) 26 13-40 U/L Alanine Aminotransferase (ALT) 31 7-40 U/L Alkaline Phosphatase 95 46-116 U/L Total Protein 7.3 5.7-8.2 g/dL Albumin 4.2 3.2-4.8 g/dL Microbiology Date/Time Source Procedure Growth Status 06/20/24 10:28 Voided Urine Urine Culture - Preliminary Resulted Assessment Acute left MCA territory stroke with brief mental status change, aphasia, and left arm weakness Obesity Plan/Recommendation Monitoring Supportive treatment Telemetry UDS Lipid profile Carotid Doppler Echocardiogram Aspirin 81 mg daily Lipitor 20 mg daily Stroke risk factors discussed Lifestyle discussed More recommendation per clinical course Prognosis: Poor This medical document was created using an electronic medical record system with [email or web address] dictation system. Although this document has been carefully reviewed, there may still be some phonetic and typographical errors. These areas are purely typographical due to imperfections of the software programs, and do not reflect any compromise in the patient's medical care. Plan discussed with: Patient, Spouse, Other LOREN VARGAS MD Jun 21, 2024 21:42
[2024-06-21] MEDS: ATORVASTATIN 20 MG TAB PO SCH (22:24)
[2024-06-22] VITALS (9 sets, daily range): BP systolic 134–149; BP diastolic 60–82; PULSE 66–98; RESP 18–20; TEMP 97.7–98.6; O2SAT 92–98
[2024-06-22] MEDS: ACETAMINOPHEN 500 MG TAB or CAP PO PRN (00:13)
[2024-06-22 01:32] LABS: Urine Bacteria None Seen /hpf (None Seen)
[2024-06-22 01:55] LABS: Urine Blood Negative /uL (Negative); Urine Clarity Clear (Clear); Urine Color Light-Yellow (Yellow); Urine Protein, UAD TRACE (Negative); Urine Specific Gravity 1.017 (1.001-1.035); Urine Urobilinogen Normal (Negative); Urine WBC 1 /hpf (0 - 3)
[2024-06-22 02:10] LABS: Opiate Scree,Urine Neg (NEGATIVE)
[2024-06-22 02:15] LABS: Amphetamine Screen, Urine Neg (NEGATIVE); Barbiturate Scree,Urine Neg (NEGATIVE); Benzodiazephine Screen, Urine Pos (NEGATIVE); Cannabinoid Screen, Urine Neg (NEGATIVE); Cocaine Screen, Urine Neg (NEGATIVE); Phencyclidine Screen, Urine Neg (NEGATIVE)
[2024-06-22 07:36] LABS: Basophils # (auto) 0 10 ^3/uL (0-0.2); Basophils % (auto) 0.1 % (0.0-2.0); Eosinophils # (auto) 0 10 ^3/uL (0-0.8); Hemoglobin 15.1 g/dL (13.5-17.5); Lymphocytes # (auto) 1.4 10 ^3/uL (0.4-5.4); Lymphocytes % (auto) 9.3 % (10.0-50.0); Mean Corpuscular Hemoglobin 30.7 pg (28.0-32.0); Mean Corpuscular Hgb Conc. 34.3 g/dL (32.0-36.0); Mean Corpuscular Volume 89.6 fL (80.0-100.0); Monocytes # (auto) 0.8 10 ^3/uL (0-1.3); Monocytes % (auto) 5.7 % (0.0-12.0); Neutrophils # (auto) 12.7 10 ^3/uL (1.6-8.6); Neutrophils % (auto) 84.9 % (37.0-80.0); Platelet Count (auto) 308 10^3/uL (140-450); Red Blood Cells 4.91 10^6/uL (4.5-5.90); Red Cell Distribution Width 13.2 % (11.8-14.3); White Blood Cell 14.9 10^3/uL (4.4-10.8)
[2024-06-22 07:58] LABS: Alanine Aminotransferase 25 U/L (7-40); Albumin 4.2 g/dL (3.2-4.8); Alkaline Phosphatase 88 U/L (46-116); Anion Gap 10 (5-15); Aspartate Aminotransferase 29 U/L (13-40); BUN/Creatinine Ratio 17.9 (10.0-20.0); Blood Urea Nitrogen 19 mg/dL (9-23); Calcium 9.7 mg/dL (8.7-10.4); Carbon Dioxide 22 mmol/L (20-31); Chloride 107 mmol/L (98-107); HDL Cholesterol 48 mg/dL (40-59); Potassium 4.1 mmol/L (3.5-5.1); Sodium 139 mmol/L (136-145); Total Protein 7.3 g/dL (5.7-8.2); Triglycerides 101 mg/dL (< 150)
[2024-06-22 08:00] LABS: Bilirubin, Total 1.9 mg/dL (0.2-1.0); Cholesterol 214 mg/dL (< 200); Glucose 129 mg/dL (74-106); LDL Cholesterol 157 mg/dL (< 100)
--- NOTE | 2024-06-22 09:04 | DVH ---
CAROTID ARTERIAL DOPPLER CLINICAL HISTORY: TIA TECHNIQUE: Doppler study of bilateral carotid/vertebral arteries were performed. Comparison: None FINDINGS: There are atheromatous plaques in the bilateral carotid bulbs, [id number]. There are samantha vated peak systolic velocities in the proximal right and left internal carotid arteries measuring 194 centimeters/second and 197 centimeters/second. This corresponds to stenosis of approximately 50-69%. Bilateral common carotid arteries appear patent without hemodynamically significant stenosis. Antegrade flow is present within the vertebral arteries with appropriate velocities and waveforms. Right ICA/CCA PSV ratio = 1.1. Left ICA/CCA PSV ratio = 1.9 . IMPRESSION: 1. 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 There are elevated p eak systolic velocities in the proximal internal carotid arteries corresponding to stenosis of approx imately 50-69%. Further evaluation with CTA neck with contrast is recommended. HS:Y
[2024-06-22] MEDS: ASPirin 81 mg TAB PO SCH (10:12)
[2024-06-22] MEDS ORDERED: ASPI-325 PO ×2 (17:51)
[2024-06-22] MEDS ORDERED: CLOP75TA28 PO ×2 (17:51)
[2024-06-22] MEDS ORDERED: ATOR80TA PO ×2 (17:51)
--- NOTE | 2024-06-22 18:19 | DVHDS2 ---
Discharge Summary Date of Admission Jun 21, 2024 at 16:35 Date of Discharge: Jun 22, 2024 Admitting Diagnosis Left hydrocelectomy and epididymal cystectomy Labs/Diagnostic Data: Laboratory Results Test 06/22/24 06:59 06/22/24 00:30 06/21/24 20:24 06/21/24 15:38 White Blood Count 14.9 10^3/uL (4.4-10.8) Red Blood Count 4.91 10^6/uL (4.5-5.90) Hemoglobin 15.1 g/dL (13.5-17.5) Hematocrit 44.0 % (41.0-53.0) Mean Corpuscular Volume 89.6 fL (80.0-100.0) Mean Corpuscular Hemoglobin 30.7 pg (28.0-32.0) Mean Corpuscular Hemoglobin Concent 34.3 g/dL (32.0-36.0) Red Cell Distribution Width 13.2 % (11.8-14.3) Platelet Count 308 10^3/uL (140-450) Mean Platelet Volume 6.9 fL (6.9-10.8) Neutrophils (%) (Auto) 84.9 % (37.0-80.0) Lymphocytes (%) (Auto) 9.3 % (10.0-50.0) Monocytes (%) (Auto) 5.7 % (0.0-12.0) Eosinophils (%) (Auto) 0.0 % (0.0-7.0) Basophils (%) (Auto) 0.1 % (0.0-2.0) Neutrophils # (Auto) 12.7 10 ^3/uL (1.6-8.6) Lymphocytes # (Auto) 1.4 10 ^3/uL (0.4-5.4) Monocytes # (Auto) 0.8 10 ^3/uL (0-1.3) Eosinophils # (Auto) 0 10 ^3/uL (0-0.8) Basophils # (Auto) 0 10 ^3/uL (0-0.2) Nucleated Red Blood Cells 0.0 % Sodium Level 139 mmol/L (136-145) Potassium Level 4.1 mmol/L (3.5-5.1) Chloride Level 107 mmol/L (98-107) Carbon Dioxide Level 22 mmol/L (20-31) Anion Gap 10 (5-15) Blood Urea Nitrogen 19 mg/dL (9-23) Creatinine 1.06 mg/dL (0.700-1.30) Glomerular Filtration Rate Calc 75 mL/min (>90) BUN/Creatinine Ratio 17.9 (10.0-20.0) Serum Glucose 129 mg/dL (74-106) Calcium Level 9.7 mg/dL (8.7-10.4) Total Bilirubin 1.9 mg/dL (0.2-1.0) Aspartate Amino Transferase (AST) 29 U/L (13-40) Alanine Aminotransferase (ALT) 25 U/L (7-40) Alkaline Phosphatase 88 U/L (46-116) Total Protein 7.3 g/dL (5.7-8.2) Albumin 4.2 g/dL (3.2-4.8) Triglycerides Level 101 mg/dL (< 150) Cholesterol Level 214 mg/dL (< 200) LDL Cholesterol 157 mg/dL (< 100) HDL Cholesterol 48 mg/dL (40-59) Urine Color Light-yellow (Yellow) Urine Clarity Clear (Clear) Urine pH 6.0 (5.0-9.0) Urine Specific [place] 1.017 (1.001-1.035) Urine Protein Trace (Negative) Urine Ketones Trace (Negative) Urine Blood Negative /uL (Negative) Urine Nitrite Negative (Negative) Urine Bilirubin Negative (Negative) Urine Urobilinogen Normal mg/dL (Negative) Urine Leukocyte Esterase Negative /uL (Negative) Urine RBC 3 /hpf (0 - 3) Urine WBC 1 /hpf (0 - 3) Urine Squamous Epithelial Cells None seen /hpf (<5) Urine Bacteria None seen /hpf (None Seen) Urine Glucose Normal mg/dL (Normal) Urine Opiates Screen Neg (NEGATIVE) Urine Fentanyl Screen Pos (NEGATIVE) Urine Barbiturates Screen Neg (NEGATIVE) Urine Phencyclidine Screen Neg (NEGATIVE) Urine Amphetamines Screen Neg (NEGATIVE) Urine Benzodiazepines Screen Pos (NEGATIVE) Urine Cocaine Screen Neg (NEGATIVE) Urine Cannabinoids Screen Neg (NEGATIVE) POC Glucose 147 mg/dl (70-106) Test 06/20/24 10:28 Prothrombin Time 10.8 sec (9.3-11.8) Prothrombin Time INR 1.02 (0.9-1.15) Activated Partial Thromboplast Time 29.1 SEC (24.5-34.5) Urine Mucus Few (None Seen) Other Laboratory Tests 06/22/24 06:59 Brief Hx & Hospital Course: Mr. Campos is a 73 years old right-handed gentleman with a history of obesity. He had scheduled left epididymal cyst removal by Dr. Rodríguez on 06/21/2024, he remembered that he was in a wheelchair, about to sign release paperwork, but the next memory was waking up still in the same wheelchair, and nursing was asking him questions, and asked him to exercise. He does not remember having troubles, but he was said to have difficult to speak, weakness right arm. The patient was never had similar problem before, he was no history of stroke, seizure, he had a quick recovery. Patient underwent Brain MRI which Acute CVA vs Subacute CVA. Patient neurological symptoms have resolved. Patient wishes to be discharged home tonight. I had a discussion with the patients spouse over the phone. Patient needs to continue with ASA, Plavix, and Lipitor. Operations or Procedures EXAMINATION: MRI BRAIN HEAD WO CONTRAST INDICATION: TIA COMPARISON: CT HEAD WITHOUT CONTRAST on DOS: 06/21/24 TECHNIQUE: Multiplanar, multisequence magnetic resonance imaging of the brain was performed without the use of intravenous contrast. FINDINGS: There are small scattered patchy foci of restricted diffusion in the left superior and lateral frontal lobes consistent with acute to subacute infarcts. There is no evidence of acute intracranial hemorrhage. There is no significant surrounding edema. There is no mass effect or midline shift. There are patchy and confluent hyperintense T2 signal changes in the supratentorial white matter compatible with moderate chronic microvascular ischemic changes. There is no hydrocephalus or extra-axial fluid collection. The visualized intracranial vasculature demonstrates appropriate flow-voids. The sagittal midline structures appear unremarkable. The craniocervical junction is within normal limits. The calvarium demonstrates normal marrow signal. The paranasal sinuses and mastoid air cells are clear. IMPRESSION: 1. Small scattered patchy foci of restricted diffusion in the left superior and lateral frontal lobes consistent with acute to subacute infarcts. There is no evidence of acute intracranial hemorrhage. There is no significant surrounding edema or mass effect. 2. Moderate chronic microvascular supratentorial white matter ischemic changes. Condition at Discharge: Poor Final Diagnosis/Problems List Left hydrocelectomy and epididymal cystectomy Acute vs. Subacute CVA Discharge Disposition: Home Discharge Instruct/Medications Diet: Regular Activity: Light activity Activity comment: Scrotal support and minimal activity x4 weeks Follow Up/Referral: Follow-up for drain removal on Tuesday06/25/24 Medications: Given Discharge Statement: "Patient was advised to return to the ER or call 911 if any headaches, dizziness, shortness of breath, chest pain, abdominal pain, bleeding, fevers, or worsening of medical condition. Patient was counseled about treatment plan, medications, possible side effects, patientverbalized understanding. All questions were answered to the best of my ability. This discharge took greater then 30 minutes in planning, reviewing documentation, counseling the patient, and discussing with other team members." ASSESSMENT ASSESSMENT Assessment Same Date of Service: Jun 22, 2024 Billing Provider: CLARITA OLIVEROS MD Common Visit Codes: 45829-[facility]/OBS DISCH DAY >30min CLARITA OLIVEROS MD Jun 22, 2024 18:19
--- NOTE | 2024-06-22 19:41 | DVHPN2 ---
Progress Note - Dictate Date Seen: Jun 22, 2024 Medical Necessity Reason Pt with a Central, PICC or Fol: No Subjective Mr. Campos is a 73 years old right-handed gentleman with a history of obesity, but otherwise healthy, he was admitted to the [facility] on 06/21/2024 with a chief company acute stroke syndrome. At that time, he is alert and fully oriented, he provided the following history. I have seen and examined the patient, the case was discussed with Dr. Patel, he is doing fine, no new complaints Discussed with his nurse and the charge nurse He was doing fine, no new complaints I have left message for his Plavix, Zocor to his pharmacy at [phone] Urinalysis, 06/20/2024: Unremarkable UDS, 06/22/2024: Fentanyl, benzo CBC, 06/20/2024: Unremarkable BMP, 06/20/2024: Unremarkable TBI/AST/ALT/AP, 06/20/2024: 1.8/26/31/95 HGB A1c, 02/2023: 5.35 TG/HDL/LDL/HDL, 10/2023: 103/186/137/38, 06/22/2024: 101/214/157/48 TSH, 10/2019 4:1.7 Echocardiogram, 05/02/2024: Normal left ventricular size and dimension. Normal right ventricular systolic function estimated ejection fraction 55%. There is a grade 1 diastolic dysfunction. Normal right ventricular size and dimension. Drea right ventricular systolic function. Slightly increased right ventricular systolic [id number] mm of mercury. Normal biatrial size and dimension. Normal aortic valve structure and function. Normal mitral valve structure and function. Normal tricuspid valve structure and function. Pulmonary valve is grossly normal. No pericardial effusion Carotid Doppler, 06/22/2024: Atheromatous plaques in the bilateral carotid bulbs, [id number]. There are elevated peak systolic velocities in the proximal internal carotid arteries corresponding to stenosis of approximately 50-69%. Further evaluation with CTA neck with contrast is recommended CT head, 06/21/2024: No acute intracranial process MRI head, 06/21/2024: 1. Small scattered patchy foci of restricted diffusion in the left superior and lateral frontal lobes consistent with acute to subacute infarcts. There is no evidence of acute intracranial hemorrhage. There is no significant surrounding edema or mass effect. 2. Moderate chronic microvascular supratentorial white matter ischemic changes vital signs Vital Sign Date Time Temp Pulse Resp B/P (MAP) Pulse Ox O2 Delivery O2 Flow Rate FiO2 06/22/24 17:00 98.6 79 19 142/60 (87) 93 98.6 06/22/24 07:30 Nasal Cannula* 2 28 Total Intake and Output 06/21/24 06/21/24 06/22/24 15:00 23:00 07:00 Intake Total 100 ml 375 ml Balance 100 ml 375 ml medications Current Medications Medications Dose Ordered Sig/Prabha Route Start Time Stop Time Status Last Admin Dose Admin Nitroglycerin 0.4 mg Q5MINP PRN SL 06/21/24 16:45 Morphine Sulfate 2 mg Q30M PRN IV 06/21/24 16:45 Acetaminophen 500 mg Q6HP PRN PO 06/21/24 16:45 06/22/24 00:13 500 MG Acetaminophen/ Hydrocodone Bitart 1 tab Q6HPRN PRN PO 06/21/24 16:45 Ondansetron HCl 4 mg Q6HPRN PRN IV 06/21/24 16:45 Aspirin 81 mg DAILY PO 06/22/24 10:00 06/22/24 10:12 81 MG Atorvastatin Calcium 20 mg HS PO 06/21/24 22:00 06/21/24 22:24 20 MG Hydralazine HCl 10 mg Q6HR IV 06/21/24 18:00 06/22/24 13:31 10 MG Atorvastatin Calcium 20 mg HS PO 06/22/24 22:00 objective HEENT: Normocephalic, neck is supple, no carotid bruits. No mass MENTAL STATUS: Awake and alert. Oriented to person, place, time and general circumstances. Able to give personal history. SPEECH, LANGUAGE, HIGHER CORTICAL FUNCTION: no aphasia or dysathria. CRANIAL NERVES: Pupils are equal, round and reactive. EOMs full and conjugate. No nystagmus. Facial sensation intact in all three divisions bilaterally. Mandibular strength intact. Facial muscles symmetrical and strength intact. SENSATION: Sensation to touch and pinprick is normal. MOTOR: Normal tone in the upper and lower extremity. Normal muscle bulk. No fasciculations. No abnormal movements or posturing. Muscle strength of the major groups in the extremities is 5/5 except for subtle weakness in the right upper extremity REFLEXES: Deep tendon reflexes normal and symmetrical. No pathological reflexes. CEREBELLAR/COORDINATION: Finger to nose and heel to holloway are normal bilaterally. 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 Although this document has been carefully reviewed, there may still be some phonetic and typographical errors. These areas are purely typographical due to imperfections of the software programs, and do not reflect any compromise in the patient's medical care Prognosis poor Plan discussed with: Patient, Other Total Time (mins): 40 LOREN VARGAS MD Jun 22, 2024 19:41
[2024-06-22] MEDS: ATORVASTATIN 20 MG TAB PO SCH (20:30)
[2024-06-22] MEDS ORDERED: ATORVASTATIN 20 MG TAB PO SCH (22:00)
[2024-06-22] MEDS: CLOPIDOGREL BISULFATE 75 MG TAB PO SCH (22:30)
[2024-06-23 01:00] VITALS: BP 128/78; PULSE 76; RESP 20; TEMP 97.9; O2SAT 95
[2024-06-23 05:00] VITALS: BP 136/78; PULSE 74; RESP 18; TEMP 98.3; O2SAT 93
[2024-06-23] MEDS: HYDROcodone-ACET 5/325MG TAB PO PRN (06:08)
[2024-06-23] MEDS ORDERED: PHENYLEPHRINE HCL 10 MG/ML VL IV ONE (08:39)
[2024-06-23 08:40] VITALS: BP 125/64; PULSE 84; RESP 16; TEMP 98.4; O2SAT 95
[2024-06-23 08:59] VITALS: BP 125/64; PULSE 84; RESP 16; TEMP 98.4; O2SAT 95
[2024-06-25 09:25] LABS: Hepatitis B Surface Antigen Negative (Negative)
[2024-06-25 09:47] LABS: Hepatitis C Antibody Negative (Negative)
== END 2024-06-23 08:40 | disposition home or self-care (01) | DRG 711 ==
LOC: SUR 08:19 → TELE 16:35 → TELE-WESTW 19:02
PROVIDERS: ADMIT Internal Medicine; ATTEND Internal Medicine
PROC: 0VB70ZZ Excision of Left Tunica Vaginalis, Open Approach (ICD-10-PCS; 2024-06-21)
PROC: 0VBK0ZZ Excision of Left Epididymis, Open Approach (ICD-10-PCS; principal; 2024-06-21 11:47)
DX: N43.3 Hydrocele, unspecified (principal); I63.512 Cerebral infarction due to unspecified occlusion or stenosis of left middle cerebral artery; E66.9 Obesity, unspecified; F17.200 Nicotine dependence, unspecified, uncomplicated; N43.40 Spermatocele of epididymis, unspecified; Z79.82 Long term (current) use of aspirin; Z79.899 Other long term (current) drug therapy; Z68.34 Body mass index [BMI] 34.0-34.9, adult
CPT/HCPCS: 36415; 70450; 70551; 80053; 80061; 80307; 81001; 82962; 83036; 85025; 85610; 85730; 86803; 87086; 87340; 93886; 97163; G0378; J1100; J2003; J2250; J2405; J2704; J3490

== ENCOUNTER → 2024-10-11 | Outpatient (CLI) | payer OTHER ==
[~2024-10-11] MED LIST changes: +ASPI-325 PO; +ATOR80TA PO; -CEPH-510 PO; +CLOP75TA28 PO; -IBUP-1456 PO
[2024-10-11 08:12] LABS: Urine Bacteria None Seen /hpf (None Seen)
[2024-10-11 08:37] LABS: Basophils # (auto) 0.1 10 ^3/uL (0-0.2); Basophils % (auto) 0.7 % (0.0-2.0); Eosinophils # (auto) 0.3 10 ^3/uL (0-0.8); Eosinophils % (auto) 3.8 % (0.0-7.0); Hematocrit 43.6 % (41.0-53.0); Hemoglobin 15.3 g/dL (13.5-17.5); Lymphocytes # (auto) 2.3 10 ^3/uL (0.4-5.4); Lymphocytes % (auto) 27.6 % (10.0-50.0); Mean Corpuscular Hemoglobin 31.5 pg (28.0-32.0); Mean Corpuscular Hgb Conc. 35.1 g/dL (32.0-36.0); Mean Corpuscular Volume 89.6 fL (80.0-100.0); Monocytes # (auto) 0.7 10 ^3/uL (0-1.3); Monocytes % (auto) 8.8 % (0.0-12.0); Neutrophils % (auto) 59.1 % (37.0-80.0); Nucleated Red Blood Cells % 0.2 %; Platelet Count (auto) 271 10^3/uL (140-450); Red Blood Cells 4.87 10^6/uL (4.5-5.90); Red Cell Distribution Width 13.4 % (11.8-14.3); White Blood Cell 8.4 10^3/uL (4.4-10.8)
[2024-10-11 08:47] LABS: Urine Blood Negative /uL (Negative); Urine Clarity Clear (Clear); Urine Color Yellow (Yellow); Urine Mucus FEW (None Seen); Urine Protein, UAD Negative (Negative); Urine Specific Gravity 1.022 (1.001-1.035); Urine Squamous Epithelial Cell None Seen /hpf (<5); Urine Urobilinogen Normal (Negative); Urine WBC < 1 /HPF (0-3); Urine pH 5.5 (5.0-9.0)
[2024-10-11 09:05] LABS: Erythrocyte Sedimentation Rate 8 mm/hr (0-20)
[2024-10-11 09:06] LABS: Alanine Aminotransferase 20 U/L (7-40); Albumin 4.2 g/dL (3.2-4.8); Alkaline Phosphatase 98 U/L (46-116); Anion Gap 9 (5-15); Aspartate Aminotransferase 20 U/L (13-40); BUN/Creatinine Ratio 14.8 (10.0-20.0); Blood Urea Nitrogen 19 mg/dL (9-23); Calcium 9.2 mg/dL (8.7-10.4); Carbon Dioxide 26 mmol/L (20-31); Chloride 105 mmol/L (98-107); Potassium 4.2 mmol/L (3.5-5.1); Sodium 140 mmol/L (136-145); Total Protein 7.1 g/dL (5.7-8.2); Triglycerides 106 mg/dL (< 150)
[2024-10-11 09:07] LABS: Cholesterol 182 mg/dL (< 200)
[2024-10-11 09:41] LABS: Glucose 112 mg/dL (74-106); HDL Cholesterol 39 mg/dL (40-59); LDL Cholesterol 130 mg/dL (< 100)
[2024-10-11 10:34] LABS: Prostate Specific Antigen 0.43 ng/mL (0.0-4.0)
[2024-10-11 10:37] LABS: Free T4 (Free Thyroxine) 1.25 ng/dL (0.89-1.76)
== END | disposition home or self-care (01) ==
LOC: LAB 07:57
PROVIDERS: ATTEND Internal Medicine
DX: I10 Essential (primary) hypertension (principal)
CPT/HCPCS: 36415; 80053; 80061; 81001; 84153; 84439; 84443; 85025; 85652

== ENCOUNTER → 2024-11-12 | Outpatient (CLI) | payer OTHER ==
[2024-11-12 08:26] LABS: Urine Bacteria None Seen /hpf (None Seen)
[2024-11-12 08:35] LABS: Basophils # (auto) 0 10 ^3/uL (0-0.2); Basophils % (auto) 0.5 % (0.0-2.0); Eosinophils # (auto) 0.3 10 ^3/uL (0-0.8); Eosinophils % (auto) 3.4 % (0.0-7.0); Hematocrit 48.3 % (41.0-53.0); Hemoglobin 16.7 g/dL (13.5-17.5); Lymphocytes % (auto) 24.1 % (10.0-50.0); Mean Corpuscular Hemoglobin 30.5 pg (28.0-32.0); Mean Corpuscular Hgb Conc. 34.7 g/dL (32.0-36.0); Mean Corpuscular Volume 87.9 fL (80.0-100.0); Monocytes # (auto) 0.7 10 ^3/uL (0-1.3); Monocytes % (auto) 8.5 % (0.0-12.0); Neutrophils # (auto) 5.3 10 ^3/uL (1.6-8.6); Neutrophils % (auto) 63.5 % (37.0-80.0); Nucleated Red Blood Cells % 0.1 %; Platelet Count (auto) 298 10^3/uL (140-450); Red Blood Cells 5.49 10^6/uL (4.5-5.90); Red Cell Distribution Width 13.4 % (11.8-14.3); White Blood Cell 8.3 10^3/uL (4.4-10.8)
[2024-11-12 08:52] LABS: Urine Blood Negative /uL (Negative); Urine Clarity Clear (Clear); Urine Color Light-Yellow (Yellow); Urine Protein, UAD Negative (Negative); Urine Specific Gravity 1.025 (1.001-1.035); Urine Squamous Epithelial Cell None Seen /hpf (<5); Urine Urobilinogen Normal (Negative); Urine WBC 2 /HPF (0-3); Urine pH 5.5 (5.0-9.0)
[2024-11-12 09:02] LABS: Alanine Aminotransferase 24 U/L (7-40); Albumin 4.5 g/dL (3.2-4.8); Alkaline Phosphatase 115 U/L (46-116); Anion Gap 8 (5-15); Aspartate Aminotransferase 20 U/L (13-40); BUN/Creatinine Ratio 16.1 (10.0-20.0); Blood Urea Nitrogen 20 mg/dL (9-23); Calcium 9.9 mg/dL (8.7-10.4); Carbon Dioxide 27 mmol/L (20-31); Chloride 105 mmol/L (98-107); Cholesterol 195 mg/dL (< 200); Potassium 4.6 mmol/L (3.5-5.1); Sodium 140 mmol/L (136-145); Total Protein 7.6 g/dL (5.7-8.2); Triglycerides 122 mg/dL (< 150)
[2024-11-12 09:03] LABS: Bilirubin, Total 1.4 mg/dL (0.2-1.0); Glucose 114 mg/dL (74-106); HDL Cholesterol 42 mg/dL (40-59); LDL Cholesterol 146 mg/dL (< 100)
[2024-11-12 09:52] LABS: Erythrocyte Sedimentation Rate 8 mm/hr (0-20)
[2024-11-12 10:20] LABS: Prostate Specific Antigen 0.41 ng/mL (0.0-4.0)
[2024-11-12 10:26] LABS: Free T4 (Free Thyroxine) 1.17 ng/dL (0.89-1.76)
== END | disposition home or self-care (01) ==
LOC: LAB 08:06
PROVIDERS: ATTEND Internal Medicine
DX: I10 Essential (primary) hypertension (principal); E78.00 Pure hypercholesterolemia, unspecified
CPT/HCPCS: 36415; 80053; 80061; 81001; 84153; 84439; 84443; 85025; 85652

== ENCOUNTER → 2025-04-19 | Outpatient (CLI) | payer OTHER ==
[2025-04-19 07:36] LABS: Hematocrit 43.9 % (41.0-53.0); Hemoglobin 15.2 g/dL (13.5-17.5); Mean Corpuscular Hemoglobin 30.6 pg (28.0-32.0); Mean Corpuscular Volume 88.6 fL (80.0-100.0); Nucleated Red Blood Cells % 0.2 %
[2025-04-19 07:48] LABS: Urine Protein, UAD TRACE (Negative)
[2025-04-19 08:05] LABS: Alanine Aminotransferase 23 U/L (7-40); Albumin 4.3 g/dL (3.2-4.8); Alkaline Phosphatase 109 U/L (46-116); Anion Gap 13 (5-15); BUN/Creatinine Ratio 16.5 (10.0-20.0); Blood Urea Nitrogen 21 mg/dL (9-23); Calcium 9.2 mg/dL (8.7-10.4); Carbon Dioxide 23 mmol/L (20-31); Chloride 105 mmol/L (98-107); Potassium 4.0 mmol/L (3.5-5.1); Sodium 141 mmol/L (136-145); Total Protein 7.6 g/dL (5.7-8.2); Triglycerides 109 mg/dL (< 150)
[2025-04-19 08:06] LABS: Cholesterol 136 mg/dL (< 200)
[2025-04-19 08:07] LABS: Bilirubin, Total 1.7 mg/dL (0.2-1.0); Glucose 118 mg/dL (74-106); HDL Cholesterol 38 mg/dL (40-59)
== END | disposition home or self-care (01) ==
LOC: LAB 07:16
PROVIDERS: ATTEND Internal Medicine
DX: I10 Essential (primary) hypertension (principal); E78.5 Hyperlipidemia, unspecified
CPT/HCPCS: 36415; 80053; 80061; 81001; 82270; 84439; 84443; 85025; 85652